=== PATIENT | female | born 1990 | race Caucasian/White ===

== ENCOUNTER → 2020-02-11 12:11 | Outpatient (CLI) | payer OTHER, SELFPAY ==
--- NOTE | 2020-02-11 12:14 | DI.US.S_ITS ---
LIMITED ULTRASOUND OF RIGHT BREAST: 02/11/2020 CLINICAL: Palpable right breast lump by physician. .7cm diameter mass at 700 just below areolar border. -per MARITZA SRIVASTAVA ON ORDER. No prior exams were available for comparison. Color flow and real-time ultrasound of the right breast 7 o'clock, and retroareolar regions were performed on the areas of interest. There is a 0.8 cm x 0.6 cm x 0.6 cm oval cyst in the right breast at 7 o'clock in the retroareolar region. This oval cyst is hypoechoic with a well-defined boundary, internal echoes, and posterior acoustic enhancement. This correlates as palpated. Color flow imaging demonstrates that there is no vascularity present. IMPRESSION: PROBABLY BENIGN The 0.8 cm x 0.6 cm x 0.6 cm oval cyst in the right breast likely represents a complicated cyst and is probably benign. A follow-up ultrasound in 6 months is recommended. A follow-up ultrasound in 6 months is recommended to demonstrate stability. This exam was interpreted at Station ID: [id number]. Electronically Signed By: Antony armenta/aries:02/11/2020 16:36:06 letter sent: Followup Recommended Ultrasound BI-RADS: 3 Probably benign
== END ==
PROVIDERS: Family Provider Obstetrics & Gynecology; PCP Registered Nurse Diabetes Educator; Referring Provider Registered Nurse Diabetes Educator; Visit Provider Registered Nurse Diabetes Educator
DX: R92.8 Other abnormal and inconclusive findings on diagnostic imaging of breast (principal); N60.01 Solitary cyst of right breast
CPT/HCPCS: 76642

== ENCOUNTER → 2020-04-05 12:39 | Outpatient (CLI) | payer OTHER, SELFPAY ==
--- NOTE | 2020-04-05 12:40 | DI.US.S_ITS ---
PROCEDURE: US OB <= 14 WEEKS FETUS INDICATIONS: Early viability dating, LMP 01/12/2020. OUTSIDE/PRIOR DATING DATA: Last menstrual period (LMP): 01/12/20. LMP-based estimated date of delivery (ASHLIE): 10/19/19 . First dating scan (date and location): 04/05/20 . Estimated date of delivery (ASHLIE) from first dating scan: 11/26/20 . TECHNIQUE: Real-time scanning was performed of the fetus and maternal pelvic organs, with image documentation. Endovaginal scanning was also performed to better visualize the fetus and maternal ovaries. COMPARISON: None. 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 Single living intrauterine fetus is seen in the left uterus. heart rate measures 140 beats per minute. [place]-rump length measures 0.6 cm, 6 weeks 3 days. Small subchorionic bleed 1.7 x 1.0 x 1.5 cm. Within the right uterine horn, there is a possible gestational sac, measuring 2.38 cm mean gestational sac diameter, 7 weeks 3 days however no pole is identified. Measurement variability in dating: +/- 4 weeks by LMP, +/- 7 days by mean sac diameter (use before 6 weeks gestation if crown-rump length not able to be measured), +/- 5 days by crown-rump length (up to 8 weeks 6 days gestation), +/- 7 days by crown-rump length (up to 13 weeks 6 days gestation). Maternal organs: Right ovary not seen. Left ovary within normal limits. Limited images through the kidneys demonstrate no hydronephrosis. IMPRESSION: Bicornuate appearing uterus. Single living intrauterine fetus seen within the left uterine horn/endometrial cavity. Mean gestational age 6 weeks 3 days, with an ASHLIE measuring 11/26/20 (which is technically discordant with the reported LMP and recommend clinical correlation) Small subchorionic hemorrhage. Possible gestational sac seen within the right uterine horn however no pole identified and this could reflect blighted ovum, missed spontaneous , versus pseudogestational sac. Recommend follow-up pelvic ultrasound in 1 week and correlation with beta HCG values. Findings and recommendations were personally telephoned and discussed with Dr. Alvarez's triage nurse (Georgina) at 1500 hours 04/05/20. Dictated by: Blas Patricio M.D. on 04/05/2020 at 14:36 Approved by: Blas Patricio M.D. on 04/05/2020 at 15:14
== END ==
PROVIDERS: Family Provider Obstetrics & Gynecology; PCP Registered Nurse Diabetes Educator; Referring Provider Obstetrics & Gynecology; Visit Provider Obstetrics & Gynecology
DX: O20.9 Hemorrhage in early pregnancy, unspecified (principal); Z3A.01 Less than 8 weeks gestation of pregnancy
CPT/HCPCS: 76801; 76817

== ENCOUNTER → 2020-04-17 11:35 | Outpatient (CLI) | payer OTHER, SELFPAY ==
[2020-04-17 11:53] LABS: Add Manual Diff / Slide Review NO; Basophils Absolute Auto 0 /uL (0-100); Basophils Percent Auto 0.3 % (0-2); Eosinophils Absolute Auto 0 /uL (0-450); Eosinophils Percent Auto 0.4 % (2-4); Hematocrit 37.5 % (36-46); Hemoglobin 13.3 g/dL (12.0-16.0); Lymphocytes Absolute Auto 1200 /uL (1100-4500); Lymphocytes Percent Auto 18.8 % (25-40); Mean Corpuscular HGB Conc 35.4 % (30-36); Mean Corpuscular Hemoglobin 30.7 PG (26-34); Mean Corpuscular Volume 86.9 fL (80-100); Monocytes Absolute Auto 400 /uL (0-900); Monocytes Percent Auto 6.6 % (3-14); Neutrophils Absolute Auto 4500 /uL (1500-7000); Neutrophils Percent Auto 73.9 % (50-75); Platelet Count 166 X10^3/uL (150-400); Red Blood Cell Count 4.31 X10^6/uL (4.0-5.2); Red Cell Distribution Width 12.8 % (11.6-14.8); White Blood Cell Count 6.1 X10^3/uL (4.5-11.0)
[2020-04-17 12:48] LABS: Appearance Urine UA CLEAR; Bilirubin Urine UA NEGATIVE (NEGATIVE); Color Urine UA YELLOW; Glucose Urine UA NEGATIVE (Negative); Ketones Urine UA NEGATIVE (NEGATIVE); Leukocyte Esterase Urine UA TRACE (NEGATIVE); Nitrite Urine UA NEGATIVE (Negative); Occult Blood Urine UA 1+ (Negative); Protein Urine UA NEGATIVE (Negative); Specific Gravity Urine UA 1.015 (1.000-1.035); Urobilinogen Urine UA 0.2 E.U./dL (0.2)
[2020-04-17 13:03] LABS: Amorphous Sediment Urine 1+; Bacteria Urine Few (2-10); Culture Indicated Urine Cult Not Indicated; RBC Urine 0-1/HPF (0-5/HPF); Squamous Epithelial Cell Urine 1-5 /HPF (0-5/HPF); Urine Comments CULTURE ORDERED; WBC Urine 0-1/HPF (0-5/HPF)
[2020-04-17 16:36] LABS: Hepatitis B Surface Antigen NEGATIVE s/c (NEGATIVE)
[2020-04-17 16:58] LABS: HIV 1 & 2 Ab/Ag 4th Gen Combo NEGATIVE (NEGATIVE); Hep C Virus Ab w/Reflex Quant NEGATIVE s/c (NEGATIVE)
[2020-04-18 07:35] LABS: RPR Screen Non Reactive (Non Reactive)
[2020-04-18 08:09] LABS: Varicella IgG Antibody 927 index (Immune >165)
[2020-04-19 16:39] LABS: HSV I/II IgM 0.93 Ratio (0.00-0.90)
== END ==
PROVIDERS: Family Provider Obstetrics & Gynecology; PCP Registered Nurse Diabetes Educator; Referring Provider Obstetrics & Gynecology; Visit Provider Obstetrics & Gynecology
DX: Z34.81 Encounter for supervision of other normal pregnancy, first trimester (principal); N90.89 Other specified noninflammatory disorders of vulva and perineum
CPT/HCPCS: 36415; 80055; 81003; 81015; 86694; 86695; 86696; 86787; 86803; 86850; 86900; 86901; 87086; 87389

== ENCOUNTER → 2020-06-12 14:26 | Outpatient (CLI) | payer OTHER, SELFPAY ==
[2020-06-29 07:29] LABS: AFP, Serum 37.3 ng/mL (.); Calc Gestational Age EDD (.); Estriol, Free 1.14 ng/mL (.); Inhibin A, Dimeric 266.03 pg/mL (.); Inhibin A, MoM 1.53 (.); Maternal Ethnicity Caucasian (.); Maternal Weight 135 lbs (.); Number of Fetuses No (.); OSBR Risk 1 IN 10000 (.); Results Report (.); Test Results *Screen Negative* (.); hCG, MoM 0.75 (.); hCG, Serum 28395 mIU/mL (.)
== END ==
PROVIDERS: Family Provider Obstetrics & Gynecology; PCP Registered Nurse Diabetes Educator; Referring Provider Obstetrics & Gynecology; Visit Provider Obstetrics & Gynecology
DX: Z34.82 Encounter for supervision of other normal pregnancy, second trimester (principal); Z3A.16 16 weeks gestation of pregnancy
CPT/HCPCS: 36415; 82105; 82677; 84702; 86336

== ENCOUNTER → 2020-07-06 14:45 | Outpatient (CLI) | payer OTHER, SELFPAY ==
--- NOTE | 2020-07-06 14:46 | DI.US.S_ITS ---
PROCEDURE: US OB >= 14 WEEKS FETUS INDICATIONS: ANATOMY OUTSIDE/PRIOR DATING DATA: Last menstrual period (LMP): 01/12/2020. LMP-based estimated date of delivery (ASHLIE): 10/19/2019 . First dating scan (date and location): 04/05/2020 . Estimated date of delivery (ASHLIE) from first dating scan: 11/26/2020 . TECHNIQUE: Real-time scanning was performed of the fetus, with image documentation and biometric measurements. Endovaginal scanning: No COMPARISON: None. FINDINGS: General: A single living intrauterine gestation is present. Presentation: Variable. Placenta: Placental position is left posterior , without previa. Amniotic fluid index: 16.1 cm, normal range is 5-24 cm. heart rate: 155 beats per minute. Maternal cervical canal: 3.5 cm long. Normal lower limit is 2.5 cm. Delete biometrics: Biparietal diameter: 21 weeks 2 days Head circumference: 20 weeks 4 days Abdominal circumference: 21 weeks Femur length: 20 weeks 1 day Estimated gestational age from initial scan: 19 weeks 4 days Composite gestational age from present scan: 20 weeks 5 days Estimated weight and percentile: 367 g; 95th percentile Measurement variability for biometric dating: +/- 7 days from 14 weeks to 15 weeks 6 days gestation, +/- 10 days from 16 weeks to 21 weeks 6 days gestation, +/- 2 weeks from 22 weeks to 27 weeks 6 days gestation, +/- 3 weeks for 28 weeks gestation or later. weight reference: 4500 g or EFW >90/95% is considered macrosomia or large for gestational age. EFW <10% is small for gestational age. EFW 5% or less is considered intra-uterine growth restriction. Anatomic survey: Neuro: Ventricles are non-dilated at less than 10 mm. Cisterna magna is normal at 3-11 mm. Cerebellum is normal in size and morphology. Nuchal skin fold: Normal at less than 6 mm between 14-21 weeks gestational age. Face: Nose and lips, facial profile are normal. Spine: No evidence for spina bifida. Heart: 4-chambered heart is present, with normal ventricular outflow tracts. Diaphragm: Diaphragm is intact. Stomach: Left-sided stomach is present. Kidneys: No hydronephrosis. Normal is less than 5 mm in 2nd trimester, less than 7 mm in 3rd trimester. Cord: 3-vessel cord has orthotopic insertion. Marginal placental cord insertion. Bladder: Normal in size. Extremities: All 4 extremities identified. IMPRESSION: 1. Normal interval growth. 2. Normal anatomic survey. 3. Marginal cord insertion site with the insertion roughly 1.7 cm from the placental edge. Dictated by: Virgilio CRUZ on 07/07/2020 at 10:15 Approved by: Nishi Coats M.D. on 07/07/2020 at 14:32
== END ==
PROVIDERS: Family Provider Obstetrics & Gynecology; PCP Registered Nurse Diabetes Educator; Referring Provider Obstetrics & Gynecology; Visit Provider Obstetrics & Gynecology
DX: Z34.92 Encounter for supervision of normal pregnancy, unspecified, second trimester (principal); Z3A.20 20 weeks gestation of pregnancy
CPT/HCPCS: 76811

== ENCOUNTER → 2020-08-08 | Outpatient (CLI) | payer OTHER, SELFPAY ==
--- NOTE | 2020-08-08 13:20 | DI.US.S_ITS ---
Date: 08/08/2020 14:37 At the request of: SHANTHI SRIVASTAVA Procedure: US breast RT limited ULTRASOUND OF RIGHT BREAST: 08/08/2020 CLINICAL: 6 mo followup on palpable mass. Comparison is made to exam dated: 02/11/2020 [facility]. Doppler ultrasound of the right breast was performed. [place] scale images of the real-time examination were reviewed. The benign 0.8 cm x 0.6 cm x 0.6 cm cyst in the right breast at 7 o'clock in the retroareolar region is no longer seen. IMPRESSION: BENIGN There is no sonographic evidence of malignancy. Recommend clinical follow-up. This exam was interpreted at Station ID: [id number]. Electronically Signed By: Eduardo Hobson acr/:08/08/2020 14:47:43 letter sent: Clinical Evaluation Ultrasound BI-RADS: 2 Benign
== END ==
LOC: US 14:11
PROVIDERS: Family Provider Obstetrics & Gynecology; PCP Registered Nurse Diabetes Educator; Referring Provider Registered Nurse Diabetes Educator; Visit Provider Registered Nurse Diabetes Educator
DX: N60.01 Solitary cyst of right breast
CPT/HCPCS: 76642

== ENCOUNTER → 2020-08-11 12:52 | Outpatient (CLI) | payer OTHER, SELFPAY ==
[2020-08-11 14:45] LABS: Hematocrit 33.2 % (36-46); Hemoglobin 11.4 g/dL (12.0-16.0)
[2020-08-11 15:01] LABS: GTT (PREG) 1 Hour PP 50gm Dose 110 mg/dL (76-139)
== END ==
PROVIDERS: Family Provider Obstetrics & Gynecology; PCP Registered Nurse Diabetes Educator; Referring Provider Obstetrics & Gynecology; Visit Provider Obstetrics & Gynecology
DX: Z34.82 Encounter for supervision of other normal pregnancy, second trimester (principal); Z3A.26 26 weeks gestation of pregnancy
CPT/HCPCS: 36415; 82950; 85014; 85018; 86850

== ENCOUNTER → 2020-10-24 14:32 | Outpatient (CLI) | payer OTHER, SELFPAY ==
[2020-10-25 12:20] LABS: Strep Grp B PCR POS for Grp B Strep
== END ==
PROVIDERS: Family Provider Obstetrics & Gynecology; PCP Registered Nurse Diabetes Educator; Visit Provider Obstetrics & Gynecology
DX: Z34.83 Encounter for supervision of other normal pregnancy, third trimester (principal); Z3A.35 35 weeks gestation of pregnancy
CPT/HCPCS: 87186; 87653

== ENCOUNTER → 2020-11-14 08:25 | Outpatient (CLI) | payer OTHER, SELFPAY ==
[2020-11-14 16:08] LABS: COVID19 -Nasal RAPID Negative (Negative)
== END ==
PROVIDERS: Family Provider Obstetrics & Gynecology; PCP Registered Nurse Diabetes Educator; Visit Provider Obstetrics & Gynecology
DX: Z01.812 Encounter for preprocedural laboratory examination (principal); Z20.822 Contact with and (suspected) exposure to COVID-19
CPT/HCPCS: 87635

== ENCOUNTER 2020-11-16 05:50 | Inpatient (IN) | payer OTHER, MEDICAID, SELFPAY ==
[2020-11-16 06:32] VITALS: BP 131/84
[2020-11-16] MEDS: LACTATED RINGERS 1,000 ML 42 ML IV ×2 (06:36→08:31)
[2020-11-16 06:44] LABS: Add Manual Diff / Slide Review NO; Basophils Absolute Auto 0 /uL (0-100); Basophils Percent Auto 0.4 % (0-2); Eosinophils Absolute Auto 100 /uL (0-450); Eosinophils Percent Auto 1.2 % (2-4); Hematocrit 30.1 % (36-46); Lymphocytes Absolute Auto 1300 /uL (1100-4500); Lymphocytes Percent Auto 23.7 % (25-40); Mean Corpuscular HGB Conc 33.2 % (30-36); Mean Corpuscular Hemoglobin 27.5 PG (26-34); Mean Corpuscular Volume 82.8 fL (80-100); Monocytes Absolute Auto 500 /uL (0-900); Monocytes Percent Auto 9.1 % (3-14); Neutrophils Absolute Auto 3700 /uL (1500-7000); Neutrophils Percent Auto 65.6 % (50-75); Platelet Count 160 X10^3/uL (150-400); Red Blood Cell Count 3.64 X10^6/uL (4.0-5.2); White Blood Cell Count 5.6 X10^3/uL (4.5-11.0)
--- NOTE | 2020-11-16 07:20 | SUR.OPER ---
Supine on Padded OR bed, head on pillow, safety belt at thigh, arms secured on padded arm boards at <90 degrees abduction. Bump under right buttock. Legs uncrossed with pillow under knees, gel pad to heels, tape over blanket to lower legs.
--- NOTE | 2020-11-16 07:38 | P.HP_ITS ---
History of Present Illness History of Present Illness Date Patient Seen: 11/16/20 Time Patient Seen: 07:38 Chief complaint: Repeat C Section Narrative: Patient is a 30-year-old 3 para 2 who presents for repeat C- section, removal of vulvar skin tag, and fulguration of condyloma. Patient History Medical History (Updated 08/07/20 @ 15:42 by Laure Alvarez MD) Anxiety Preeclampsia (~2013) Surgical History (Updated 04/06/20 @ 10:22 by Dipti Marin RN) Status post delivery (03/25/16) [place] teeth extracted (~2018) Family & Social History Family History (Updated 04/06/20 @ 10:28 by Dipti Marin RN) Mother Fibromyalgia Cancer Father Alcoholic Smoker Grandmother No problems noted. Grandfather Family estrangement Grandmother No problems noted. Grandfather Family estrangement Social History: household members significant other,children lives independently Yes caregiver/support person No Tobacco & Substance use: Smoking Status Never smoker alcohol intake former Meds Home Medications and Allergies Home Medications Medication Instructions Recorded Confirmed Type prenat.vits,tod,xlk-qhqh-gobmt 1 tab PO DAILY 04/06/20 11/16/20 History Allergies Allergy/AdvReac Type Severity Reaction Status Date / Time Penicillins Allergy Intermediate HIVES Verified 11/14/20 15:27 Exam Vital Signs (past 8 hours): - 11/16/20 06:32 Blood Pressure 131/84 Narrative Exam Narrative: Generally: Patient is sitting up in bed, no acute distress Lungs: Clear to auscultation bilaterally Cardiovascular: Regular rate and rhythm Fundal height: 39 cm Estimated weight 7-1/2 lb Abdomen: Well-healed Pfannenstiel scar External genitalia: Skin tag on the right vulva. Condyloma acuminata surrounding the introitus. Objective Labs Result Diagrams: 11/16/20 06:30 Labs: Laboratory Results - last 24 hr 11/16/20 11/16/20 06:30 06:30 WBC 5.6 RBC 3.64 L Hgb 10.0 L Hct 30.1 L MCV 82.8 MCH 27.5 MCHC 33.2 RDW 15.0 H Plt Count 160 Neut % (Auto) 65.6 Lymph % (Auto) 23.7 L Reeves % (Auto) 9.1 Eos % (Auto) 1.2 L Baso % (Auto) 0.4 Neut # (Auto) 3700 Lymph # (Auto) 1300 Reeves # (Auto) 500 Eos # (Auto) 100 Baso # (Auto) 0 Blood Type B Negative Antibody Screen Negative Assessment & Plan Assessment & Plan narrative: Assessment: 30-year-old 3 para 2 with 2 prior sections Condyloma acuminata of the external genitalia Plan: Repeat Removal of vulvar skin tag Fulguration of condyloma accuminata of external genitalia The risks, benefits, and alternatives to the procedure were explained to the patient. The risks including bleeding, infection, injury to the bowel, bladder, or ureters. She understands these risks and agrees to proceed. A full par Q was held and consent form was signed. COVID-19 COVID-19 status: Negative Result date/Date tested (Pos, Neg/Pending): 11/14/20 Time Spent With Patient Time with patient: 15-24 minutes
[2020-11-16] MEDS: CITRIC ACID/SODIUM CITRATE 15 ML SOLUTION 30 ML PO (07:40)
[2020-11-16] MEDS: ACETAMINOPHEN 325 MG TABLET 975 MG PO (07:41)
--- NOTE | 2020-11-16 07:45 | PM.PREOP ---
Pre-operative Note COVID-19 COVID-19 status: Negative Result date/Date tested (Pos, Neg/Pending): 11/14/20 Interval Note History & Physical reviewed/Exam performed by Physician: Yes Changes to H&P: No H&P completed within 30 days and has changed as indicated here:: 11/16/20
[2020-11-16] MEDS: CEFAZOLIN 1 GM VIAL 2 GM IV (08:28)
--- NOTE | 2020-11-16 08:35 | SUR.OPER ---
Lithotomy on padded OR bed, head on pillow, arms secured on padded arm boards at <90 degrees abduction. Legs secured in padded yellow fins stirrups.
--- NOTE | 2020-11-16 08:43 | SUR.OPER ---
Viable female delivered at 08:40. Cord blood vials x2 and placenta sent with L&D RN.
[2020-11-16] MEDS: BUPIVACAINE 0.25% W/ EPI 30 ML VIAL INJ (09:19)
--- NOTE | 2020-11-16 09:28 | P.OP_ITS ---
Operative Date/Time/Diagnoses Date of procedure: 11/16/20 Time of procedure: 09:29 Pre-op diagnosis: Thirty-nine weeks gestation Previous section Vulvar skin tags Condyloma acuminata of the external genitalia/vagina Post-op diagnosis: same Procedure & Clinicians Procedure: Repeat low-transverse section Same procedure as scheduled: Yes Indications: 39 weeks gestation Previous section Surgeon: Laure Bauer Yes if Unassisted: No Safety Belt Installer: Issac Nixon Reason for Safety Belt Installer: Retract and assist with delivery of the baby Anesthesia Type: Spinal Operative Notes Findings: Live female in the ROT presentation Normal tubes and ovaries Arcuate uterus Closure Type: primary Specimen(s): cord blood and placenta Intraoperative meds administered: Acetaminophen, Duramorph and Ketorolac Applied: Catheter Estimated Blood Loss (mL): 350 Blood products transfused: none Procedure in detail: The patient was taken to the operating room where she was placed in the seated position. Spinal anesthesia with Duramorph was administered. The patient was then placed in the dorsal supine position with a leftward tilt. She was prepped and draped in the usual sterile fashion. A timeout was performed. After spinal analgesia was found to be adequate, a Pfannenstiel skin incision was made through the previous incision and carried through to the underlying layer fascia. The fascia was nicked in the midline, and the incision extended bilaterally with the Cooper scissors. The superior aspect of the fascial incision was grasped with a Mirian clamps, elevated, and the underlying rectus muscles dissected off sharply and bluntly. Attention was then turned to the inferior aspect of this incision which in a similar fashion was grasped with a Mirian clamps, elevated, and the underlying rectus muscles dissected off sharply and bluntly. The rectus muscles were in the midline. The peritoneum was identified, grasped between 2 hemostats, and entered sharply with the Metzenbaum scissors. This incision was extended superiorly and inferiorly with good visualization of the bladder. The bladder blade was inserted. The vesicouterine peritoneum was identified, grasped with the pickup, and entered sharply with the Metzenbaum scissors. This incision was extended bilaterally, and the bladder flap was created digitally. The bladder blade was reinserted. The lower uterine segment was incised in a transverse fashion with the scalpel. Upon entering the amniotic sac there was moderate a mount of clear amniotic fluid. The 's head was delivered with vacuum assistance. The nose and mouth were suctioned with bulb suction. The remainder of the body delivered without difficulty. The cord was double clamped and cut. The was handed off to waiting RN and RT. The placenta was delivered manually. The uterus was cleared of all clots and debris. The uterine incision was repaired with #1 chromic in a running interlocking fashion, and a second layer the same suture was used for an imbricating layer. Hemostasis was achieved. The tubes and ovaries were examined and were found to be normal. The gutters were cleared of all clots and debris. The bladder flap was reapproximated using 2-0 Vicryl in a running fashion. The parietal peritoneum was closed using 2-0 Vicryl in a running fashion. The fascia was reapproximated using 0 Vicryl in a running fashion. The subcutaneous layer was copiously irrigated with warm normal saline. 5 simple interrupted sutures of 3-0 Vicryl were placed to reapproximate the subcutaneous layer. The skin was closed with 4-0 undyed Vicryl in a subcuticular fashion. Steri-Strips were placed. An Aquacell dressing was placed. The uterus was expressed of a small amount of old blood. Attention was turned to the perineum after the patient was placed in the dorsal lithotomy position. The vulva was prepped and draped in the usual sterile fashion. 1% lidocaine approximately 1.5 cc were injected below each proposed site of skin tag removal and condyloma. Using the Bovie, a 0.75 x 0.75 cm skin tag was removed from the right vulva. A smaller skin tag measuring 4 mm x 4 mm was removed from the right vulva. On the left side there were 2 skin tags measuring 3 mm x 3 mm and these were both removed with the Bovie. There was a condyloma on the left labia minora. This was removed and fulguration at the base was performed. There was a second condyloma inside the vagina measuring 2 mm x 2 mm and this was removed and fulgurated with the Bovie. Hemostasis was achieved. Sponge, lap, and instrument counts were correct x2. The patient tolerated the procedure well, and was taken to PACU in stable condition. Complications: none [place] Baby 1: Gender: Male Presentation: vertex Position: Right Occiput Transverse Placental Delivery Description: Spontaneous Cord Vessel Description: 3 Vessels Post-operative Condition: stable Disposition: PACU Aftercare: routine postop
[2020-11-16 09:31] VITALS: BP 131/64; PULSE 77; RESP 12; TEMP 36.7; O2SAT 99
[2020-11-16 09:36] VITALS: BP 129/68; PULSE 73; RESP 12; O2SAT 99
[2020-11-16 09:41] VITALS: BP 134/69; PULSE 77; RESP 12; O2SAT 99
[2020-11-16 09:46] VITALS: BP 141/61; PULSE 78; RESP 16; TEMP 36.4; O2SAT 99
[2020-11-16] MEDS: LACTATED RINGERS 1,000 ML 120 ML IV ×2 (10:10→17:26)
[2020-11-16] MEDS: KETOROLAC 30 MG/ML VIAL IV ×2 (17:24→23:34)
[2020-11-17] MEDS: KETOROLAC 30 MG/ML VIAL IV (05:43)
[2020-11-17] MEDS: ACETAMINOPHEN 325 MG TABLET 650 MG PO ×2 (09:57→15:56)
[2020-11-17] MEDS: IBUPROFEN 600 MG TABLET PO ×2 (12:05→18:55)
--- NOTE | 2020-11-17 13:07 | P.PNOB_ITS ---
Subjective - OB Subjective Patient comments: no complaints, pain well controlled, tolerating diet and other (Voided without the catheter) baby status: doing well and nursing well [place] feeding status: exclusively breast feeding Date Patient Seen: 11/17/20 Time Patient Seen: 13:08 Exam Vital Signs (past 8 hours): Oxygen Delivery Method Room Air Oxygen Flow Rate 0 Narrative Exam Narrative: Generally: Patient is sitting up in bed, holding infant, no acute distress Lungs: Clear to auscultation bilaterally Cardiovascular: Regular rate and rhythm Fundus: Firm at U -1 Incision: Clean dry and intact with Aquacel dressing Extremities: Negative Homans, no edema Objective Labs Result Diagrams: 11/16/20 06:30 Assessment & Plan Plan day: 1 plan OB: routine postop care Time Spent With Patient Time: Total time spent is greater than 50% in coordination of care (as documented) at patient's floor/unit and/or counseling patient: Time with patient: 15-24 minutes
[2020-11-17 16:17] LABS: Hematocrit 29.4 % (36-46); Hemoglobin 9.7 g/dL (12.0-16.0)
[2020-11-18] MEDS: IBUPROFEN 600 MG TABLET PO ×2 (00:45→06:34)
[2020-11-18] MEDS: ACETAMINOPHEN 325 MG TABLET 650 MG PO ×2 (00:45→06:34)
[2020-11-18 09:00] VITALS: BP 113/64; PULSE 71; RESP 16; TEMP 36.5
[2020-11-18] MEDS: RHO(D) IMMUNE GLOBULIN 1,500 UNIT SYRINGE 1500 UNIT IM (10:44)
--- NOTE | 2020-11-23 10:44 | P.DS_ITS ---
Discharge Providers Provider Date of admission: 11/16/20 05:50 Discharge Date: 11/18/20 Primary care physician: NADIA Modi Discharge provider: Laure Alvarez MD Summary Hospital Course Date Patient Seen: 11/18/20 Time Patient Seen: 08:30 Diagnoses: Thirty-nine weeks gestation Previous section Repeat low-transverse section Hospital Course: Patient is a 30-year-old 3 para 3 who presented on November 16, 2020 for a scheduled repeat low-transverse section. She underwent this procedure without complication. Her postoperative course was unremarkable and she was discharged home on November 18, 2020. Peripartum Data Infant Delivery Method: Section Laceration Description: None Episiotomy description: None Procedures: Spinal anesthesia Repeat low-transverse section complications: none [place]: Gender: Female Disposition of : home Status at Discharge Cognitive/behavioral status at discharge: oriented Functional status at discharge: independent ambulation Overall status at discharge: patient is progressing back to baseline Time Spent with Patient Time attestation: Total time spent providing and/or coordinating discharge services: Time spent: Less than 30 minutes Objective Labs Result Diagrams: 11/17/20 16:05 Exam Vital Signs (past 8 hours): Oxygen Delivery Method Room Air Oxygen Flow Rate 0 Narrative Exam Narrative: Generally: Patient is sitting up in bed, holding , no acute distress Lungs: Clear to auscultation bilaterally Cardiovascular: Regular rate and rhythm Abdomen: Soft, good bowel sounds Fundus: Firm at U-1 Incision: Clean dry and intact with Aquacel dressing Extremities: 1+ edema, negative Hom[facility] Discharge Plan Discharge Plan Patient Disposition: Home Provider Discharge Comment: Call with fever, chills, or redness or drainage around the incision. Call with bleeding more than a pad in an hour Ibuprofen 600 mg every 6 hours as needed for cramping Tylenol 650 mg every 6 hours as needed Discharge orders & Medications Prescriptions: New docusate sodium [Colace] 100 mg capsule 100 mg PO BID Qty: 20 RF: 2 Continued prenat.vits,tod,bme-tcvw-hfxam Tablet 1 tab PO DAILY RF: 0 No Action oxycodone 5 mg tablet 5 mg PO Q4H PRN (Reason: pain) Qty: 20 RF: 0 oxycodone 5 mg tablet 5 mg PO Q4H PRN (Reason: pain) Qty: 20 RF: 0 oxycodone 5 mg tablet 5 mg PO Q6H PRN (Reason: pain) Qty: 10 RF: 0 Follow up/Referrals: Laure Alvarez MD [Family Provider] - (Incision check: @ 10:30am w/ Dr. Alvarez appt: @ 11am- [facility]) Diet/Activity/Treatments Diet: Regular Activity: No heavy lifting Skin/Wound/Dressing Care Report to your healthcare provider any signs of infection, such as:: chills, fever, increased pain, unusual drainage and unusual redness Dressing: Do not remove dressing until postop appointment with Dr. Alvarez Visit Report/Discharge Packet Instructions: DI for , DI for Prescription Opioid Use Stand Alone Forms: Discharge: Care Discharge Data Primary Care Provider: Kavin Loaiza
== END 2020-11-18 10:49 | disposition home or self-care (01) | DRG 787 ==
PROVIDERS: Admitting Provider Obstetrics & Gynecology; Family Provider Obstetrics & Gynecology; PCP Registered Nurse Diabetes Educator; Referring Provider Obstetrics & Gynecology; Visit Provider Obstetrics & Gynecology
PROC: 10D00Z1 Extraction of Products of Conception, Low, Open Approach (ICD-10-PCS; CPT 59514; principal; 2020-11-16 07:45)
PROC: 10D00Z1 Extraction of Products of Conception, Low, Open Approach (ICD-10-PCS; 2020-11-16 07:45)
DX: O65.5 Obstructed labor due to abnormality of maternal pelvic organs (principal); O98.32 Other infections with a predominantly sexual mode of transmission complicating childbirth; A63.0 Anogenital (venereal) warts; O34.219 Maternal care for unspecified type scar from previous cesarean delivery; Z3A.39 39 weeks gestation of pregnancy; Z37.0 Single live birth; N90.89 Other specified noninflammatory disorders of vulva and perineum; O99.824 Streptococcus B carrier state complicating childbirth; Z20.822 Contact with and (suspected) exposure to COVID-19; Z01.812 Encounter for preprocedural laboratory examination
CPT/HCPCS: 36415; 59050; 59510; 59514; 85014; 85018; 85025; 85461; 86850; 86900; 86901; 87635; J0690; J1885; J2274; J2590; J2790

== ENCOUNTER 2020-11-18 23:14 | Emergency (ER) | payer OTHER, MEDICAID, SELFPAY ==
[2020-11-18 23:29] VITALS: BP 149/80; PULSE 68; RESP 20; TEMP 36.8; O2SAT 99; BMI 23.7
--- NOTE | 2020-11-18 23:45 | ED_ITS ---
HPI - Recheck/Abnormal Lab/Rx General Chief Complaint: Recheck/Abnormal Lab/Rx Stated Complaint: 2 days ago, never received RX Time Seen by Provider: 11/18/20 23:40 Source: patient Mode of arrival: Ambulatory Limitations: no limitations History of Present Illness HPI narrative: This is a 30-year-old female comes emergency department with complaint of 2 days ago was discharged from [facility] today. Patient states she had a prescription for pain medication sent to [facility] in [place] but was told that it was rejected. Her flat bed operator Dr. Alvarez, did call to resend but patient states with a recontact the pharmacy was still not present. Patient states she has been taking Tylenol and ibuprofen but still has quite a bit of pain particularly when sitting on the toilet. She is . She is aware of having someone present to keep a be safe if she is taking any narcotics. Patient states otherwise she has been doing well. No fevers. No chest pain or shortness of breath. Her incision is intact and not causing any problems or having any drainage or signs of bleeding. Patient states her main concern is short-term pain control. Related Data Home Medications Medication Instructions Recorded Confirmed prenat.vits,tdo,dci-uhya-gutqv 1 tab PO DAILY 04/06/20 11/16/20 Previous Rx's Medication Instructions Recorded docusate sodium 100 mg capsule 100 mg PO BID #20 cap 11/18/20 (Colace) oxycodone 5 mg tablet 5 mg PO Q4H PRN #20 tab 11/18/20 oxycodone 5 mg tablet 5 mg PO Q6H PRN #10 tab 11/19/20 Allergies Allergy/AdvReac Type Severity Reaction Status Date / Time Penicillins Allergy Intermediate HIVES Verified 11/14/20 15:27 Review of Systems Review of Systems ROS Unobtainable: All systems reviewed & are unremarkable except as noted in HPI and below Patient History Medical History Anxiety Preeclampsia (~2013) Surgical History Status post delivery (03/25/16) [place] teeth extracted (~2018) Family History Mother Fibromyalgia Cancer Father Alcoholic Smoker Grandmother No problems noted. Grandfather Family estrangement Grandmother No problems noted. 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 ) current occupational exposures/hazards: No jennifer/mu-ism: Druze special jennifer needs: No seatbelt use: always Smoking Status: Never smoker second hand exposure: No alcohol intake: former (Pre-, just on weekends, 1-2 glasses wine. ) substance use type: does not use during the past year weight has: remained stable well-balanced diet: daily or most days daily servings fruits/ve-4 caffeine: Yes (Prior to : energy drinks. ) Type(s) of exercise: walking and normal ROM and activity frequency: does not exercise Smoking Status: Never smoker Substance Use Type: does not use Exam Narrative Exam Narrative: GENERAL: Alert and oriented x three, female in mild distress. HEENT: Head normocephalic, atraumatic, EOMI, pupils reactive, face symmetric, moist mucous membranes NECK: Supple, full range of motion CARDIOVASCULAR: Regular rate and rhythm without murmurs, rubs or gallops. RESPIRATORY: Breath sounds equal bilaterally, no wheezes rales or rhonchi. ABDOMEN: Soft, stga-jg-mmslyjqc tenderness. Non-distended. Normoactive bowel sounds all 4 quadrants. No guarding or rebound, rigidity, no mass : No CVA tenderness EXTREMITIES: Normal range of motion, no clubbing or edema. Neurovascularly intact NEUROLOGICAL: Cranial nerves II through XII grossly intact. Moving all extremities SKIN: Warm, dry, no petechiae, no rashes or lesions. Initial Vital Signs Initial Vital Signs: Vital Signs Temperature 98.3 F 11/18/20 23:29 Pulse Rate 68 11/18/20 23:29 Respiratory Rate 20 11/18/20 23:29 Blood Pressure 149/80 H 11/18/20 23:29 Pulse Oximetry 99 08/07/21 23:29 Course Orders Ordered: Discontinued Medications Oxycodone/Acetaminophen (Oxycodone/Apap 5/325 Prepack) [facility] Stop: 11/19/20 00:06 Last Admin: 11/19/20 00:26 Dose: 1 bottle Documented by: KATT Vital Signs Vital signs: Vital Signs - 8 hr 11/18/20 23:29 Temperature 98.3 F Pulse Rate 68 Respiratory Rate 20 Blood Pressure 149/80 H Pulse Oximetry 99 MDM - Recheck/Abnormal Lab/Rx MDM Narrative Medical decision making narrative: This is a 30-[facility]. She is 2 days postop for . She did try to contact her flat bed operator but was not able to fill her prescription today after being discharged. It is the weekend pharmacies will not be open until tomorrow morning. Patient was given a short-term prescription as well as a prepack for overnight. Precautions in terms of breast-feeding and she is to contact her OBGYN in the morning to facilitate longer prescription as needed. Discharge Plan Departure Patient Disposition: Home Clinical Impression: Request for narcotic pain medication, S/P Activity Restrictions/Additional Instructions: Please give Dr. Alvarez a call in the morning to discuss filling your pain medication. Congratulations on the delivery of your new baby. You may take up to 3000 mg of Tylenol in 24 hours. Your prepack is Percocet and does have a small amount of Tylenol so please compare this to which her taking of regular Tylenol at home. The prescription sent to [facility] is oxycodone and you will not have any Tylenol in it. Make sure you have someone present to make sure you do not fall asleep when you taking any narcotic pain medication while breast feeding. Prescription sent to [facility] in [place]. This medication can make you sleepy do not drive, perform hazardous activities or make any major decisions while taking it. This medication will make you constipated please take a stool softener once to twice daily until stools are soft and regular. Please return for fevers, new or worsening abdominal pain, lightheadedness or passing out, persistent vomiting, new chest pain or shortness of breath, signs of infection air incision site or other new or concerning symptoms. Prescriptions: New oxycodone 5 mg tablet 5 mg PO Q6H PRN (Reason: pain) Qty: 10 RF: 0 No Action prenat.vits,tod,mog-xktr-udrzz Tablet 1 tab PO DAILY RF: 0 oxycodone 5 mg tablet 5 mg PO Q4H PRN (Reason: pain) Qty: 20 RF: 0 docusate sodium [Colace] 100 mg capsule 100 mg PO BID Qty: 20 RF: 2 Referrals: Kavin Loaiza ARNP [Primary Care Provider] -
[2020-11-19] MEDS: OXYCODONE/APAP 5/325 PREPACK 1 BOTTLE MISC (00:26)
== END 2020-11-19 00:31 | disposition home or self-care (01) ==
PROVIDERS: Emergency Provider Emergency Medicine; Family Provider Obstetrics & Gynecology; PCP Registered Nurse Diabetes Educator
DX: Z76.0 Encounter for issue of repeat prescription (principal); Z98.891 History of uterine scar from previous surgery
CPT/HCPCS: 99281

== ENCOUNTER → 2022-09-19 12:47 | Outpatient (CLI) | payer OTHER, MEDICAID, SELFPAY | PROVIDERS: Family Provider Obstetrics & Gynecology; PCP Registered Nurse Diabetes Educator; Visit Provider Nurse Practitioner Family | DX: J02.9 Acute pharyngitis, unspecified (principal) | CPT/HCPCS: 87070 ==

== ENCOUNTER → 2023-10-13 19:11 | Outpatient (CLI) | payer OTHER, MEDICAID, SELFPAY ==
--- NOTE | 2023-10-13 19:13 | DI.RAD.S_ITS ---
PROCEDURE: XR KNEE LT 3V INDICATIONS: Left knee strain TECHNIQUE: 3 views of the knee were acquired. COMPARISON: None. FINDINGS: Bones: No fractures or dislocations. Slight lateral tilting of patella is seen. No suspicious bony lesions. Soft tissues: Small suprapatellar joint effusion. No suspicious soft tissue calcifications. IMPRESSION: No acute left knee fracture or dislocation. Slight lateral tilt of patella. Small joint effusion. Dictated by: Evin Rousseau M.D. on 10/14/2023 at 9:41 Approved by: Evin Rousseau M.D. on 10/14/2023 at 9:41
== END ==
PROVIDERS: Family Provider Obstetrics & Gynecology; PCP Registered Nurse Diabetes Educator; Referring Provider Nurse Practitioner Family; Visit Provider Nurse Practitioner Family
DX: S86.912A Strain of unspecified muscle(s) and tendon(s) at lower leg level, left leg, initial encounter (principal); M25.462 Effusion, left knee; X58.XXXA Exposure to other specified factors, initial encounter
CPT/HCPCS: 73562